=== PATIENT | male | born 1965 | race Two or more races ===

== ENCOUNTER 2018-05-08 23:36 | Emergency (ER) | payer BC, OTHER ==
[~2018-05-08] VITALS: Ht 165.1 cm; Wt 76.7 kg
[2018-05-08 23:38] VITALS: BP 152/89
[2018-05-09] MEDS ORDERED: IBUPROFEN 400 MG TABLET PO ONE (00:30)
[2018-05-09] MEDS ORDERED: IBUPROFEN 400 MG TABLET ONE (00:45)
== END 2018-05-09 01:53 | disposition home or self-care (01) ==
LOC: ER 23:38
DX: M25.511 Pain in right shoulder (principal); Z98.890 Other specified postprocedural states
CPT/HCPCS: 73030; 99284; A4606; Z7610